=== PATIENT | male | born 1990 | race Hispanic/Latino ===

== ENCOUNTER 2022-03-16 17:59 | Emergency (ER) | payer OTHER ==
[~2022-03-16] VITALS: Ht 175.3 cm; Wt 102.1 kg
[2022-03-16] MEDS ORDERED: OCTYL 2-CYANOACRYLATE 1 EACH TP ONE (18:20)
[2022-03-16 18:26] LABS: BASOPHILS % (AUTO) 0.4 % (0.0-5.0); EOSINOPHILS % (AUTO) 3.9 % (0.0-8.0); HEMATOCRIT 39.3 % (42-54); LYMPHOCYTES % (AUTO) 26.4 % (21.0-51.0); MEAN CORPUSCULAR HEMOGLOBIN 30.8 pg (27.0-33.0); MEAN CORPUSCULAR HGB CONC 36.1 g/dL (32.0-36.0); MEAN CORPUSCULAR VOLUME 85.2 fL (79-99); MONOCYTES % (AUTO) 6.4 % (3.0-13.0); NEUTROPHILS % (AUTO) 62.3 % (40.0-77.0); PLATELET COUNT (AUTO) 214 K/uL (130-400); RED BLOOD CELL COUNT(AUTO) 4.61 MIL/uL (4.50-6.20); RED CELL DISTRIBUTION WIDTH 12.5 % (11.0-15.5); WHITE BLOOD COUNT (AUTO) 10.7 K/uL (4.8-10.8)
[2022-03-16 18:37] LABS: POTASSIUM 3.8 mmol/L (3.5-5.1)
[2022-03-16 18:41] LABS: ALBUMIN 3.4 g/dL (3.5-5.0); TOTAL PROTEIN, SERUM 7.2 g/dL (6.0-8.3)
[2022-03-16 19:57] LABS: APPEARANCE,URINE CLEAR (CLEAR); BILIRUBIN,URINE NEGATIVE (NEGATIVE); COLOR,URINE LIGHT-YELLOW (YELLOW); GLUCOSE, URINE (UA) NEGATIVE (NEGATIVE); KETONES,URINE NEGATIVE (NEGATIVE); LEUKOCYTE ESTERASE ,URINE NEGATIVE Leu/uL (NEGATIVE); NITRATE,URINE NEGATIVE (NEGATIVE); OCCULT BLOOD,URINE NEGATIVE (NEGATIVE); PROTEIN,URINE NEGATIVE (NEGATIVE); UROBILINOGEN,URINE 0.2 mg/dL (0.2-1.0)
[2022-03-16 20:00] LABS: MUCUS,URINE RARE LPF (None Seen)
[2022-03-16] MEDS ORDERED: METR375C2 PO (20:18)
[2022-03-16] MEDS ORDERED: ONDA4TAB10 PO (20:18)
[2022-03-16] MEDS ORDERED: DICY20TA2 PO (20:18)
[2022-03-16] MEDS ORDERED: LEVO-70 PO (20:18)
[2022-03-16] MEDS ORDERED: FAMO-136 PO (20:18)
[2022-03-16] MEDS ORDERED: LEVOFLOXACIN 500 MG TABLET PO SCH (20:30)
[2022-03-16] MEDS ORDERED: FAMOTIDINE 20MG VIAL IV ONE (20:30)
[2022-03-16] MEDS ORDERED: LIDOCAINE HCL 2% VISCOUS 15 ML UDCUP PO ONE (20:30)
[2022-03-16] MEDS ORDERED: METRONIDAZOLE 500 MG TABLET PO SCH (20:30)
[2022-03-16] MEDS ORDERED: MAG/ALUM/SIMETH 30 ML UDCUP PO ONE (20:30)
[2022-03-16] MEDS ORDERED: DICYCLOMINE HCL 10 MG/5 ML ML PO ONE (20:30)
[2022-03-16 20:37] VITALS: BP 130/92
== END 2022-03-16 20:56 | disposition home or self-care (01) ==
LOC: EDH 17:59
DX: K57.30 Diverticulosis of large intestine without perforation or abscess without bleeding (principal); R91.1 Solitary pulmonary nodule; E66.9 Obesity, unspecified; Z68.33 Body mass index [BMI] 33.0-33.9, adult; Z79.899 Other long term (current) drug therapy
CPT/HCPCS: 99285; 74176; 96374; 80053; 83690; 85025; 86140; 81001; 36415; 93005; J3490